=== PATIENT | female | born 1935 | race African-American/Black ===

== ENCOUNTER 2025-01-14 01:01 | Inpatient (IN) | payer OTHER, MEDICAID ==
[~2025-01-14] VITALS: Ht 162.6 cm; Wt 56.0 kg
--- NOTE | 2025-01-14 01:18 | ED.PDOC ---
SOB-HPI HPI Comments 89 year old female presents to the ED with a chief complaint of shortness of breath onset 2 weeks. Patient has been experiencing sore throat, cough, cold, congestion, shortness of breath for the past 2 weeks, noticed SOB worsened last night. She has been taking Theraflu for symptoms, with no improvement. Upon ED arrival, she was hypertensive, BP 174/102. PMHx COPD, anxiety, depression. Denies fever, chills, chest pain, nausea, vomiting, diarrhea, headache, blurry vision, dizziness. No other symptoms or modifying factors present at this time. Chief Complaint: Shortness of Breath Time Seen by MD: :10 Reviewed notes: Medications, Allergies Information Source: Patient Mode of Arrival: Ambulatory Severity: Moderate Timing: Weeks Duration: Since onset Context: At Rest PE Risk Factors: None History of: COPD, Anxiety Prehospital treatment: Other (theraflu) Modifying Factors: Nothing Associated Signs and Symptoms: Cough, Nasal Congestion, Sore Throat Past Medical History PAST MEDICAL HISTORY: Anxiety, COPD, Depression Surgical History: Denies all surgeries ADMISSIONS GATE ATTENDANT History: No Pertinent ADMISSIONS GATE ATTENDANT History Family History Family History: Reviewed,noncontributory to illness, No family hx of Cancer, No family hx of DM, No family hx of Heart yaniv, No family hx of HTN, No family hx ofKidney yaniv, No family hx of Liver yaniv, No family hx of Lung yaniv, No family hx of Stroke Social History Smoker: Quit Greater Than 1 Year Alcohol: Denies ETOH Use Drugs: Denies Drug Use Lives In: Home Constitutional: denies: chills, diaphoresis, fatigue, fever, malaise, sweats, weakness, others EENTM: reports: nose congestion, throat pain; denies: blurred vision, double vision, ear bleeding, ear discharge, ear drainage, ear pain, ear ringing, eye pain, eye redness, hearing loss, mouth pain, mouth swelling, nasal discharge, nose bleeding, nose pain, photophobia, tearing, throat swelling, voice changes, others Respiratory: reports: cough, shortness of breath; denies: hemoptysis, orthopnea, SOB at rest, SOB with excertion, stridor, wheezing, others Cardiovascular: denies: chest pain, dizzy spells, diaphoresis, Dyspnea on exertion, edema, irregular heart beat, left arm pain, lightheadedness, palpitations, PND, syncope, others Gastrointestinal: denies: abdomen distended, abdominal pain, blood streaked bowels, constipated, diarrhea, dysphagia, difficulty swallowing, hematemesis, melena, nausea, poor appetite, poor fluid intake, rectal bleeding, rectal pain, vomiting, others Genitourinary: denies: abnormal vagina bleeding, burning, dyspareunia, dysuria, flank pain, frequency, hematuria, incontinence, pain, , vagina discharge, urgency, others Neurological: denies: dizziness, fainting, headache, left sided numbness, left sided weakness, numbness, paresthesia, pre-existing deficit, right sided numbness, right sided weakness, seizure, speech problems, tingling, tremors, weakness, others Musculoskeletal: denies: back pain, gout, joint pain, joint swelling, muscle pain, muscle stiffness, neck pain, others Integumetry: denies: bruises, change in color, change in hair/nails, dryness, laceration, lesions, lumps, rash, wounds, others Allergic/Immunocompromised: denies: Difficulty Healing, Frequent Infections, Hives, Itching, others Hematologic/Lymphatic: denies: anemia, blood clots, easy bleeding, easy bruising, swollen glands, others Endocrine: denies: excessive hunger, excessive sweating, excessive thirst, excessive urination, flushing, intolerance to cold, intolerance to heat, unexplained weight gain, unexplained weight loss, others Psychiatric: denies: anxiety, bipolar disorder, depression, hopeless, panic disorder, schizophrenia, sleepless, suicidal, others All Other Systems: Reviewed and Negative Physical Exam General Appearance: Normal HEENT: Normal ENT Inspection, Pharynx Normal, TMs Normal Neck: Full Range of Motion, Non-Tender, Normal, Normal Inspection Respiratory: Chest Non-Tender, Lungs Clear, No Accessory Muscle Use, No Respiratory Distress, Normal Breath Sounds Cardiovascular: No Edema, No JVD, No Murmur, No Gallop, Normal Peripheral Pulses, Regular Rate/Rhythm Breast Exam: Deferred Gastrointestinal: No Organomegaly, Non Tender, No Pulsatile Mass, Normal Bowel Sounds, Soft Genitalia: Deferred Pelvic: Deferred Rectal: Deferred Extremities: No calf tenderness, Normal capillary refill, Normal inspection, Normal range of motion, Non-tender, No pedal edema Musculoskeletal : Apperance: Normal Neurologic: Alert, coordinator mining products II-XII nml as Tested, No Motor Deficits, Normal Affect, Normal Mood, No Sensory Deficits Cerebellar Function: Normal Reflexes: Normal Skin: Dry, Normal Color, Warm Lymphatic: No Adenopathy Was a procedure done? Was a procedure done?: No Differential Dx Differential Diagnosis: Asthma, CHF, COPD, Dysrhythmia, Hypertension, Pulmonary Embolism, URI, Other X-Ray, Labs, Meds, VS Vital Signs Date Time Temp Pulse Resp B/P (MAP) Pulse Ox O2 Delivery O2 Flow Rate FiO2 01/14/25 03:34 97.4 65 16 191/97 (128) 95 97.4 01/14/25 01:50 20 98 Room Air* 0 21 01/14/25 01:04 97.4 64 22 174/102 96 97.4 Lab Test 01/14/25 02:37 01/14/25 01:40 01/14/25 01:25 Range/Units Troponin I High Sensitivity 4 4 </=34 ng/L Blood Gas Specimen Type Venous Blood Gas Sample Site Vbg - n/a Blood Gas Patient Temperature 37.0 Arterial Blood Date Drawn [id number] Uriah Test N/a Venous Blood pH 7.394 7.320-7.430 Venous Blood pCO2 at Patient Temp 46.7 38.0-54.0 mmHg Venous Blood pO2 at Patient Temp < 36.5 23.0-48.0 mmHg Venous Blood HCO3 27.9 22.0-29.0 mmol/L Venous Blood Base Excess 2.3 -2.0-3.0 mmol/L Blood Gas Modality Room air FiO2 % 21.0 White Blood Count 5.7 4.4-10.8 10^3/uL Red Blood Count 4.05 4.0-5.20 10^6/uL Hemoglobin 12.5 12.2-16.2 g/dL Hematocrit 36.4 36.0-46.0 % Mean Corpuscular Volume 90.0 80.0-100.0 fL Mean Corpuscular Hemoglobin 30.9 28.0-32.0 pg Mean Corpuscular Hemoglobin Concent 34.4 32.0-36.0 g/dL Red Cell Distribution Width 13.4 11.8-14.3 % Platelet Count 158 140-450 10^3/uL Mean Platelet Volume 9.9 6.9-10.8 fL Neutrophils (%) (Auto) 45.4 37.0-80.0 % Lymphocytes (%) (Auto) 36.3 10.0-50.0 % Monocytes (%) (Auto) 15.0 H 0.0-12.0 % Eosinophils (%) (Auto) 3.0 0.0-7.0 % Basophils (%) (Auto) 0.3 0.0-2.0 % Neutrophils # (Auto) 2.6 1.6-8.6 10 ^3/uL Lymphocytes # (Auto) 2.0 0.4-5.4 10 ^3/uL Monocytes # (Auto) 0.8 0-1.3 10 ^3/uL Eosinophils # (Auto) 0.2 0-0.8 10 ^3/uL Basophils # (Auto) 0 0-0.2 10 ^3/uL Nucleated Red Blood Cells 0.0 % Sodium Level 141 136-145 mmol/L Potassium Level 3.4 L 3.5-5.1 mmol/L Chloride Level 107 98-107 mmol/L Carbon Dioxide Level 25 20-31 mmol/L Anion Gap 9 5-15 Blood Urea Nitrogen 10 9-23 mg/dL Creatinine 0.90 0.550-1.02 mg/dL Glomerular Filtration Rate Calc 62 >90 mL/min BUN/Creatinine Ratio 11.1 10.0-20.0 Serum Glucose 89 74-106 mg/dL Calcium Level 9.7 8.7-10.4 mg/dL Magnesium Level 2.2 1.6-2.6 mg/dL Total Bilirubin 1.2 H 0.2-1.0 mg/dL Aspartate Amino Transferase (AST) 23 13-40 U/L Alanine Aminotransferase (ALT) 16 7-40 U/L Alkaline Phosphatase 86 46-116 U/L B-Type Natriuretic Peptide 59.96 0-100 pg/mL Total Protein 7.5 5.7-8.2 g/dL Albumin 4.2 3.2-4.8 g/dL Current Medications Medications (Trade) Dose Ordered Sig/Oksana Route Start Time Stop Time Status Last Admin Albuterol (Ventolin Medneb) 5 mg ONCE ONCE NEB 01/14/25 01:15 01/14/25 01:18 DC 01/14/25 01:49 Prednisone 40 mg ONCE ONCE PO 01/14/25 01:15 01/14/25 01:18 DC 01/14/25 03:23 Ipratropium [place] (Atrovent Medneb) 0.5 mg ONCE ONCE NEB 01/14/25 01:15 01/14/25 01:18 DC 01/14/25 01:47 Time of 1ST Reevaluation: 01:40 Reevaluation 1ST: Unchanged Patient Education/Counseling: Diagnosis, Treatment, Prognosis Family Education/Counseling: No Family Present Additional Information The following tests were ordered, and results were reviewed by me: TROP-x3, CBC, CMP, BNP, XY CHEST, MAG, VBG I reviewed and agreed with the following test results read by other providers: XY CHEST I discussed treatment and results with medical personnel and: patient Comprehensive systems review obtained and negative except for what is stated in the HPI. SEPSIS Sepsis Screen Date sepsis recognized/suspect: Jan 14, 2025 Time Sepsis recognized/suspect: 107 Recent Procedure: No On Antibiotic Therapy: No Respiratory Rate >20: No Heart Rate >90: No Temp<36 C (96.8 F) or >38.3 C: No SBP <90 or MAP <65 mmHG: No New Acute Mental Status Change: No Is the patient on CPAP, BIPAP,: No Physician Orders Chest Portable (01/14/25 01:15) Chief Relay Tester (01/14/25 01:15) Troponin-I Hs (01/14/25 04:15) Electrocardigram (01/14/25 01:15) Venous Blood Gas (01/14/25 01:15) Hydralazine Hcl Tablet (Apresoline Table (01/14/25 04:00) Vital Signs Date Time Temp Pulse Resp B/P (MAP) Pulse Ox O2 Delivery O2 Flow Rate FiO2 01/14/25 03:34 97.4 65 16 191/97 (128) 95 97.4 01/14/25 01:50 20 98 Room Air* 0 21 01/14/25 01:04 97.4 64 22 174/102 96 97.4 Laboratory Tests Test 01/14/25 01:25 White Blood Count 5.7 10^3/uL (4.4-10.8) Medications Medications Dose Ordered Sig/Oksana Route Start Time Stop Time Status Last Admin Dose Admin Albuterol 5 mg ONCE ONCE NEB 01/14/25 01:15 01/14/25 01:18 DC 01/14/25 01:49 Ipratropium [place] 0.5 mg ONCE ONCE NEB 01/14/25 01:15 01/14/25 01:18 DC 01/14/25 01:47 Prednisone 40 mg ONCE ONCE PO 01/14/25 01:15 01/14/25 01:18 DC 01/14/25 03:23 Departure 1 Departure Time of Disposition: 03:53 Impression: Primary Impression: Hypertensive urgency Additional Impression: COPD exacerbation Disposition: ADMITTED INPATIENT Admit to: Tele Condition: Guarded Comments 89-year-old female with shortness of breath and some tightness in her chest. Blood pressure quite elevated. Initial troponin normal. I suspect COPD exacerbation. I suspect intermediate coronary syndrome. Patient was given aspirin and hydralazine for blood pressure control. Patient will need to be admitted in the hospital for further workup and supportive care Critical Care Note Critical Care Time?: No Stability Stability form required: No Heart Score Heart Score: Heart Score Response (Comments) Value History Moderate Suspicious 1 EKG Repolarization Disturb 1 Age >65 2 Risk Factors 1 or 2 risk factors 1 Troponin Normal limit 0 Total 5 I personally scribed for LEONIDES HEMPHILL MD ([email or web address]) on 01/14/25 at 01:18. Electronically submitted by Ghazala Alas ([email or web address]). I personally scribed for LEONIDES HEMPHILL MD ([email or web address]) on 01/14/25 at 01:19. Electronically submitted by Ghazala Alas ([email or web address]). LEONIDES HEMPHILL MD Jan 14, 2025 01:18
[2025-01-14 01:46] LABS: Hematocrit 36.4 % (36.0-46.0); Hemoglobin 12.5 g/dL (12.2-16.2); Mean Corpuscular Hemoglobin 30.9 pg (28.0-32.0); Mean Corpuscular Volume 90.0 fL (80.0-100.0); Nucleated Red Blood Cells % 0.0 %
[2025-01-14] MEDS: IPRATROPIUM BROM 0.5 MG/2.5ML INH SOL NEB ONE (01:47)
[2025-01-14] MEDS: ALBUTEROL SULF 2.5 MG/0.5ML(0.5%) NEB SOLN NEB ONE (01:49)
[2025-01-14 02:01] LABS: Alanine Aminotransferase 16 U/L (7-40); Albumin 4.2 g/dL (3.2-4.8); Alkaline Phosphatase 86 U/L (46-116); Anion Gap 9 (5-15); BUN/Creatinine Ratio 11.1 (10.0-20.0); Blood Urea Nitrogen 10 mg/dL (9-23); Calcium 9.7 mg/dL (8.7-10.4); Carbon Dioxide 25 mmol/L (20-31); Chloride 107 mmol/L (98-107); Glucose 89 mg/dL (74-106); Magnesium 2.2 mg/dL (1.6-2.6); Sodium 141 mmol/L (136-145); Total Protein 7.5 g/dL (5.7-8.2)
[2025-01-14 02:02] LABS: Bilirubin, Total 1.2 mg/dL (0.2-1.0)
[2025-01-14 02:13] LABS: Potassium 3.4 mmol/L (3.5-5.1)
--- NOTE | 2025-01-14 03:13 | DVH ---
INDICATION: SOB TECHNIQUE: Frontal view of the chest. COMPARISON: None FINDINGS: . The heart and mediastinal contours are grossly unremarkable. There is no evidence of pleural disea se. The lungs are clear. The bony structures of the chest are intact without fracture. IMPRESSION: 1. No evidence of acute disease.
[2025-01-14] MEDS: predniSONE 20 MG TAB PO ONE (03:23)
[2025-01-14 03:34] VITALS: PULSE 65; RESP 16; TEMP 97.4; O2SAT 95
[2025-01-14 03:52] VITALS: BP 176/114
[2025-01-14] MEDS ORDERED: NITROGLYCERIN 0.4 MG SL TAB SL PRN (04:45)
[2025-01-14] MEDS ORDERED: ALBUTEROL SULF 2.5 MG/0.5ML(0.5%) NEB SOLN NEB PRN (04:45)
[2025-01-14] MEDS ORDERED: ACETAMINOPHEN 325 MG TAB PO PRN (04:45)
[2025-01-14] MEDS ORDERED: IPRATROPIUM BROM 0.5 MG/2.5ML INH SOL NEB PRN (04:45)
[2025-01-14] MEDS ORDERED: ONDANSETRON HCL 4 MG/2 ML VIAL IV PRN (04:45)
[2025-01-14] MEDS ORDERED: MORPHINE SULFATE INJ 2 MG/ml SYRG IV PRN (04:45)
--- NOTE | 2025-01-14 05:00 | DVHHP2 ---
History of Present Illness Reason for Visit: Shortness for breath History of Present Illness 59-year-old female presents for evaluation of shortness for breath. Patient reports a one-week history of shortness for breath that worsened yesterday. States having a nonproductive cough. No fever or chills. No other acute complaints Past Medical History COPD, depression Past Surgical History Denies Family History Noncontributory Smoke: Quit ALCOHOL: none Drugs: None Lives: with Family Review of Systems Review of Systems Review of systems are currently negative otherwise addressed in HPI. Allergies: Coded Allergies: NO KNOWN ALLERGIES (Unverified , 01/14/25) Medications Current Medications Medications Dose Ordered Sig/Oksana Route Start Time Stop Time Status Last Admin Dose Admin Amlodipine Besylate 5 mg DAILY PO 01/14/25 10:00 Clonidine HCl 0.1 mg Q6HP PRN PO 01/14/25 04:45 Albuterol 2.5 mg Q6HPRN PRN NEB 01/14/25 04:45 Ipratropium [place] 0.5 mg Q6HPRN PRN NEB 01/14/25 04:45 Methylprednisolone Sodium Succinate 40 mg BID IV 01/14/25 10:00 Ondansetron HCl 4 mg Q4HP PRN IV 01/14/25 04:45 UNV Enoxaparin Sodium 40 mg DAILY SC 01/14/25 10:00 UNV Acetaminophen 650 mg Q6HP PRN PO 01/14/25 04:45 UNV Nitroglycerin 0.4 mg Q5MINP PRN SL 01/14/25 04:45 UNV Morphine Sulfate 2 mg Q30M PRN IV 01/14/25 04:45 UNV Exam Vital Signs Vital Signs Date Time Temp Pulse Resp B/P (MAP) Pulse Ox O2 Delivery O2 Flow Rate FiO2 01/14/25 04:18 176/114 01/14/25 03:34 97.4 65 16 95 97.4 01/14/25 01:50 Room Air* 0 21 Exam Gen: 89-year-old female in mild distress Skin: Warm, dry, normal color and texture, no rash. HEENT: Normocephalic atraumatic, mucous membranes moist and pink. Neck: Cervical and supraclavicular nodes normal without enlargement, trachea is midline, thyroid gland is normal without masses. Pulmonary: Diminished breath sounds bilaterally Cardiac: Regular rate and rhythm. No murmur Abdomen: Soft, nontender, nondistended, bowel sounds present all 4 quadrants, no guarding, no rigidity, no organomegaly. Extremities: No cyanosis, clubbing, no edema Neuro: Cranial nerves II through XII grossly intact, normal affect and speech, no focal motor deficits. Labs/Xrays ORDERING PHYSICIAN: LEONIDES HEMPHILL MD PROCEDURE(s): CXRP - CHEST PORTABLE REASON: SOB ORDER NUMBER(s): [id number], ACCESSION NUMBER(s): [id number] INDICATION: SOB TECHNIQUE: Frontal view of the chest. COMPARISON: None FINDINGS: . The heart and mediastinal contours are grossly unremarkable. There is no evidence of pleural disease. The lungs are clear. The bony structures of the chest are intact without fracture. IMPRESSION: 1. No evidence of acute disease. Labs Test 01/14/25 02:37 01/14/25 01:40 01/14/25 01:25 Range/Units Troponin I High Sensitivity 4 </=34 ng/L Blood Gas Specimen Type Venous Blood Gas Sample Site Vbg - n/a Blood Gas Patient Temperature 37.0 Arterial Blood Date Drawn Uriah Test N/a Venous Blood pH 7.394 7.320-7.430 Venous Blood pCO2 at Patient Temp 46.7 38.0-54.0 mmHg Venous Blood pO2 at Patient Temp < 36.5 23.0-48.0 mmHg Venous Blood HCO3 27.9 22.0-29.0 mmol/L Venous Blood Base Excess 2.3 -2.0-3.0 mmol/L Blood Gas Modality Room air FiO2 % 21.0 White Blood Count 5.7 4.4-10.8 10^3/uL Red Blood Count 4.05 4.0-5.20 10^6/uL Hemoglobin 12.5 12.2-16.2 g/dL Hematocrit 36.4 36.0-46.0 % Mean Corpuscular Volume 90.0 80.0-100.0 fL Mean Corpuscular Hemoglobin 30.9 28.0-32.0 pg Mean Corpuscular Hemoglobin Concent 34.4 32.0-36.0 g/dL Red Cell Distribution Width 13.4 11.8-14.3 % Platelet Count 158 140-450 10^3/uL Mean Platelet Volume 9.9 6.9-10.8 fL Neutrophils (%) (Auto) 45.4 37.0-80.0 % Lymphocytes (%) (Auto) 36.3 10.0-50.0 % Monocytes (%) (Auto) 15.0 H 0.0-12.0 % Eosinophils (%) (Auto) 3.0 0.0-7.0 % Basophils (%) (Auto) 0.3 0.0-2.0 % Neutrophils # (Auto) 2.6 1.6-8.6 10 ^3/uL Lymphocytes # (Auto) 2.0 0.4-5.4 10 ^3/uL Monocytes # (Auto) 0.8 0-1.3 10 ^3/uL Eosinophils # (Auto) 0.2 0-0.8 10 ^3/uL Basophils # (Auto) 0 0-0.2 10 ^3/uL Nucleated Red Blood Cells 0.0 % Sodium Level 141 136-145 mmol/L Potassium Level 3.4 L 3.5-5.1 mmol/L Chloride Level 107 98-107 mmol/L Carbon Dioxide Level 25 20-31 mmol/L Anion Gap 9 5-15 Blood Urea Nitrogen 10 9-23 mg/dL Creatinine 0.90 0.550-1.02 mg/dL Glomerular Filtration Rate Calc 62 >90 mL/min BUN/Creatinine Ratio 11.1 10.0-20.0 Serum Glucose 89 74-106 mg/dL Calcium Level 9.7 8.7-10.4 mg/dL Magnesium Level 2.2 1.6-2.6 mg/dL Total Bilirubin 1.2 H 0.2-1.0 mg/dL Aspartate Amino Transferase (AST) 23 13-40 U/L Alanine Aminotransferase (ALT) 16 7-40 U/L Alkaline Phosphatase 86 46-116 U/L B-Type Natriuretic Peptide 59.96 0-100 pg/mL Total Protein 7.5 5.7-8.2 g/dL Albumin 4.2 3.2-4.8 g/dL SEPSIS Sepsis Screen Date sepsis recognized/suspect: Jan 14, 2025 Time Sepsis recognized/suspect: 0108 Recent Procedure: No On Antibiotic Therapy: No Respiratory Rate >20: No Heart Rate >90: No Temp<36 C (96.8 F) or >38.3 C: No SBP <90 or MAP <65 mmHG: No New Acute Mental Status Change: No Is the patient on CPAP, BIPAP,: No Physician Orders Chest Portable (01/14/25 01:15) Cement Gun Operator (01/14/25 01:15) Electrocardigram (01/14/25 01:15) Venous Blood Gas (01/14/25 01:15) Amlodipine Tablet (Norvasc Tablet) (01/14/25 10:00) Clonidine Hcl Tablet (Catapres Tablet) (01/14/25 04:45) Albuterol Medneb (Ventolin Medneb) (01/14/25 04:45) Ipratropium Medneb (Atrovent Medneb) (01/14/25 04:45) Methylprednisolone Sod Succ (Solu Medrol (01/14/25 10:00) Urinalysis (01/14/25 04:40) Basic Metabolic Panel (01/15/25 04:00) Admit (01/14/25 04:40) Ondansetron Hcl (Zofran) (01/14/25 04:45) Enoxaparin Sodium (Lovenox) (01/14/25 10:00) Cardiac Diet-2gna,Lofat,Lochol (01/14/25 Breakfast) Condition: Fair (01/14/25 04:40) Acetaminophen Tablet (Tylenol Tablet) (01/14/25 04:45) Bedrest With Bathroom Privileg (01/14/25 04:40) Nitroglycerin Sublingual (Ntrostat Subli (01/14/25 04:45) Morphine Sulfate Injection (01/14/25 04:45) Stat Ekg For Chest Pain (01/14/25 04:40) Notify Md Of Changes From Base (01/14/25 04:40) Renal Dietitian For 24 Hours (01/14/25 04:40) Emergency Dysrhythmia Protocol (01/14/25 04:40) Rhythm Strips Once Every Shift (01/14/25 04:40) Oxygen By Nasal Cannula (01/14/25 04:40) Vital Signs Date Time Temp Pulse Resp B/P (MAP) Pulse Ox O2 Delivery O2 Flow Rate FiO2 01/14/25 04:18 176/114 01/14/25 03:52 176/114 (134) 01/14/25 03:34 97.4 65 16 191/97 (128) 95 97.4 01/14/25 01:50 20 98 Room Air* 0 21 01/14/25 01:04 97.4 64 22 174/102 96 97.4 Laboratory Tests Test 01/14/25 01:25 White Blood Count 5.7 10^3/uL (4.4-10.8) Medications Medications Dose Ordered Sig/Oksana Route Start Time Stop Time Status Last Admin Dose Admin Albuterol 5 mg ONCE ONCE NEB 01/14/25 01:15 01/14/25 01:18 DC 01/14/25 01:49 5 MG Aspirin 162 mg ONCE ONCE PO 01/14/25 04:00 01/14/25 04:01 DC 01/14/25 04:18 162 MG Hydralazine HCl 25 mg ONCE ONCE PO 01/14/25 04:00 01/14/25 04:01 DC 01/14/25 04:18 25 MG Ipratropium [place] 0.5 mg ONCE ONCE NEB 01/14/25 01:15 01/14/25 01:18 DC 01/14/25 01:47 0.5 MG Prednisone 40 mg ONCE ONCE PO 01/14/25 01:15 01/14/25 01:18 DC 01/14/25 03:23 40 MG Assessment/Plan Assessment/Plan Assessment Acute on chronic respiratory failure COPD exacerbation Accelerated hypertension Plan Admit the patient to telemetry to the hospitalist Med nebs As needed antihypertensives Continue treatment per orders. Plan discussed with: Patient My Orders Orders - KORTNEY STERLING AGACNP Procedure Category Date Status Time Amlodipine Tablet PHA 01/14/25 In Process (Norvasc Tablet) 10:00 Clonidine Hcl Tablet PHA 01/14/25 In Process (Catapres Tablet) 04:45 Albuterol Medneb PHA 01/14/25 In Process (Ventolin Medneb) 04:45 Ipratropium Medneb PHA 01/14/25 In Process (Atrovent Medneb) 04:45 Methylprednisolone PHA 01/14/25 In Process Sod Succ (Solu Medrol 10:00 Urinalysis LAB 01/14/25 Logged 04:40 Basic Metabolic Panel LAB 01/15/25 Verified 04:00 Admit ADMIT 01/14/25 Transmitted 04:40 Ondansetron Hcl PHA 01/14/25 In Process (Zofran) 04:45 Enoxaparin Sodium [facility] 01/14/25 Logged (Lovenox) 10:00 Cardiac DIET 01/14/25 Transmitted Diet-2gna,Lofat,Lochol Breakfast Condition: Fair [facility] 01/14/25 In Process 04:40 Acetaminophen Tablet [facility] 01/14/25 Logged (Tylenol Tablet) 04:45 Bedrest With Bathroom [facility] 01/14/25 In Process Privileg 04:40 Nitroglycerin [facility] 01/14/25 Logged Sublingual (Ntrostat 04:45 Morphine Sulfate [facility] 01/14/25 Logged Injection 04:45 Stat Ekg For Chest [facility] 01/14/25 In Process Pain 04:40 Notify Md Of Changes [facility] 01/14/25 In Process From Base 04:40 Renal Dietitian For [facility] 01/14/25 In Process 24 Hours 04:40 Emergency Dysrhythmia [facility] 01/14/25 In Process Protocol 04:40 Rhythm Strips Once [facility] 01/14/25 In Process Every Shift 04:40 Oxygen By Nasal RT 01/14/25 Transmitted Cannula 04:40 Date of Service: Jan 14, 2025 Billing Provider: KORTNEY STERLING Common Visit Codes: [id number] INP/OBS CARE (HIGH) KORTNEY STERLING Jan 14, 2025 05:00
[2025-01-14] MEDS ORDERED: methylPREDNISolone SOD SUCC 40 MG/ML VL IV SCH (10:00)
[2025-01-14] MEDS ORDERED: ENOXAPARIN SOD 40 MG/0.4 ML SYRINGE SC SCH (10:00)
== END 2025-01-14 05:00 | disposition left against medical advice (07) | DRG 189 ==
LOC: ER 01:10 → OVERFLOW 04:40
PROVIDERS: ADMIT Nurse Practitioner; ATTEND Nurse Practitioner
DX: J96.20 Acute and chronic respiratory failure, unspecified whether with hypoxia or hypercapnia (principal); J44.1 Chronic obstructive pulmonary disease with (acute) exacerbation; I16.0 Hypertensive urgency; I10 Essential (primary) hypertension; F41.9 Anxiety disorder, unspecified; Z53.29 Procedure and treatment not carried out because of patient's decision for other reasons; Z87.891 Personal history of nicotine dependence
CPT/HCPCS: 36415; 36600; 71045; 80053; 82805; 83735; 83880; 84484; 85025; 94640; G0378

== ENCOUNTER 2025-01-22 17:37 | Emergency (ER) | payer OTHER, MEDICAID ==
[~2025-01-22] VITALS: Ht 162.6 cm; Wt 56.4 kg
--- NOTE | 2025-01-22 19:30 | ED.PDOC ---
History of Present Illness HPI Comments 89-year-old female who came to ER for head injury. Patient states she bumped her head 2 weeks ago, and since then she has been having left frontal headaches, associated with left-sided body pain. Denies any chest pains or shortness a breath Chief Complaint: Head Injury Time Seen by MD: 19:29 Reviewed Notes: Nurses Notes Allergies: Coded Allergies: NO KNOWN ALLERGIES (Unverified , 01/14/25) Information Source: Patient Mode of Arrival: Ambulatory Severity: Moderate Timing: Days Duration: Intermittent Past Medical History PAST MEDICAL HISTORY: Anxiety, COPD, Depression, HTN Surgical History: Denies all surgeries HAT SIZER History: No Pertinent HAT SIZER History Family History Family History: Reviewed,noncontributory to illness Social History Smoker: Quit Greater Than 1 Year Alcohol: Denies ETOH Use Drugs: Denies Drug Use Lives In: Home Constitutional: denies: chills, diaphoresis, fatigue, fever, malaise, sweats, weakness, others EENTM: denies: blurred vision, double vision, ear bleeding, ear discharge, ear drainage, ear pain, ear ringing, eye pain, eye redness, hearing loss, mouth pain, mouth swelling, nasal discharge, nose bleeding, nose congestion, nose pain, photophobia, tearing, throat pain, throat swelling, voice changes, others Respiratory: denies: cough, hemoptysis, orthopnea, SOB at rest, shortness of breath, SOB with excertion, stridor, wheezing, others Cardiovascular: denies: chest pain, dizzy spells, diaphoresis, Dyspnea on exertion, edema, irregular heart beat, left arm pain, lightheadedness, palpitations, PND, syncope, others Gastrointestinal: denies: abdomen distended, abdominal pain, blood streaked bowels, constipated, diarrhea, dysphagia, difficulty swallowing, hematemesis, melena, nausea, poor appetite, poor fluid intake, rectal bleeding, rectal pain, vomiting, others Genitourinary: denies: abnormal vagina bleeding, burning, dyspareunia, dysuria, flank pain, frequency, hematuria, incontinence, pain, , vagina discharge, urgency, others Neurological: reports: headache; denies: dizziness, fainting, left sided numbness, left sided weakness, numbness, paresthesia, pre-existing deficit, right sided numbness, right sided weakness, seizure, speech problems, tingling, tremors, weakness, others Musculoskeletal: reports: others (Left-sided body pain); denies: back pain, gout, joint pain, joint swelling, muscle pain, muscle stiffness, neck pain Integumetry: denies: bruises, change in color, change in hair/nails, dryness, laceration, lesions, lumps, rash, wounds, others Allergic/Immunocompromised: denies: Difficulty Healing, Frequent Infections, Hives, Itching, others Hematologic/Lymphatic: denies: anemia, blood clots, easy bleeding, easy bruising, swollen glands, others Endocrine: denies: excessive hunger, excessive sweating, excessive thirst, excessive urination, flushing, intolerance to cold, intolerance to heat, unexplained weight gain, unexplained weight loss, others Psychiatric: denies: anxiety, bipolar disorder, depression, hopeless, panic disorder, schizophrenia, sleepless, suicidal, others Physical Exam General Appearance: No Apparent Distress, Normal HEENT: Normal ENT Inspection, Pharynx Normal, TMs Normal Neck: Full Range of Motion, Non-Tender, Normal, Normal Inspection Respiratory: Chest Non-Tender, Lungs Clear, No Accessory Muscle Use, No Respiratory Distress, Normal Breath Sounds Cardiovascular: No Edema, No JVD, No Murmur, No Gallop, Normal Peripheral Pulses, Regular Rate/Rhythm Breast Exam: Deferred Gastrointestinal: No Organomegaly, Non Tender, No Pulsatile Mass, Normal Bowel Sounds, Soft Genitalia: Deferred Pelvic: Deferred Rectal: Deferred Extremities: No calf tenderness, Normal capillary refill, Normal inspection, Normal range of motion, Non-tender, No pedal edema Musculoskeletal : Apperance: Normal Neurologic: Alert, rail flaw detector operator II-XII nml as Tested, No Motor Deficits, Normal Affect, Normal Mood, No Sensory Deficits Cerebellar Function: Normal Reflexes: Normal Skin: Dry, Normal Color, Warm Lymphatic: No Adenopathy Was a procedure done? Was a procedure done?: No Differential Dx Considerations may include: Head injury, concussion, CVA X-Ray, Labs, Meds, VS Vital Signs Date Time Temp Pulse Resp B/P (MAP) Pulse Ox O2 Delivery O2 Flow Rate FiO2 01/22/25 19:41 98.3 59 18 126/87 (100) 97 98.3 01/22/25 17:39 98.3 72 6 134/86 96 98.3 Time of 1ST Reevaluation: 19:26 Reevaluation 1ST: Unchanged Patient Education/Counseling: Diagnosis, Treatment Family Education/Counseling: No Family Present SEPSIS Sepsis Screen Date sepsis recognized/suspect: Jan 22, 2025 Time Sepsis recognized/suspect: 1738 Recent Procedure: No On Antibiotic Therapy: No Respiratory Rate >20: No Heart Rate >90: No Temp<36 C (96.8 F) or >38.3 C: No SBP <90 or MAP <65 mmHG: No New Acute Mental Status Change: No Is the patient on CPAP, BIPAP,: No Physician Orders Head Without Contrast (01/22/25 19:19) Vital Signs Date Time Temp Pulse Resp B/P (MAP) Pulse Ox O2 Delivery O2 Flow Rate FiO2 01/22/25 19:41 98.3 59 18 126/87 (100) 97 98.3 01/22/25 17:39 98.3 72 6 134/86 96 98.3 Departure 1 Departure Time of Disposition: 20:20 Impression: Primary Impression: Forehead contusion Additional Impression: Head injury Disposition: HOME / SELF CARE / HOMELESS Condition: Stable Discharged With: Self Critical Care Note Critical Care Time?: No Stability Stability form required: No Heart Score Heart Score: Heart Score Response (Comments) Value History N/A 0 EKG N/A 0 Age N/A 0 Risk Factors N/A 0 Troponin N/A 0 Total 0 I personally scribed for LEONIDES HEMPHILL MD ([email or web address]) on 01/22/25 at 19:30. Electronically submitted by Jonas Traore ([email or web address]). LEONIDES HEMPHILL MD Jan 22, 2025 19:30
--- NOTE | 2025-01-22 19:58 | DVH ---
EXAM: CT HEAD WITHOUT CONTRAST INDICATION: headache / head injury TECHNIQUE: CT images of the head were obtained without administration of IV contrast. CT scans at [facility] facility use dose modulation, iterative reconstruction, and/or weight based dosing when appropriate to reduce radiation dose to as low as reasonably achievable. COMPARISON: None FINDINGS: PARENCHYMA: No acute hemorrhage. There is no mass effect, midline shift, or herniation. There is pres ervation of the gay white differentiation. Mild scattered hypoattenuation along the periventricular, centrum semiovale, and deep white matter tracts, which are nonspecific however statistically most li terri represent chronic microvascular ischemic change. Slight prominent cerebellar folia correlate for volume loss. VENTRICLES: No hydrocephalus. EXTRA-AXIAL SPACES: No extra-axial fluid collections. Possible calcified meningioma of the right ante rior frontal convexity measuring 6 mm OTHER: The bony structures are intact. Visualized portions of the paranasal sinuses and mastoid air cells are clear. Vascular calcifications. IMPRESSION: 1. No CT evidence of an acute intracranial abnormality.
[2025-01-22 20:49] VITALS: TEMP 98.5
[2025-01-22] MEDS ORDERED: AMLO1TAB22 PO (21:05)
[2025-01-22 21:41] VITALS: PULSE 58; RESP 16; O2SAT 99
[2025-01-22 21:42] VITALS: BP 159/93
== END 2025-01-22 21:48 | disposition home or self-care (01) ==
LOC: ER 17:37
DX: S00.83XA Contusion of other part of head, initial encounter (principal); S09.8XXA Other specified injuries of head, initial encounter; F41.9 Anxiety disorder, unspecified; J44.9 Chronic obstructive pulmonary disease, unspecified; I10 Essential (primary) hypertension; F32.A Depression, unspecified; Z87.891 Personal history of nicotine dependence; X58.XXXA Exposure to other specified factors, initial encounter; Y93.89 Activity, other specified; Y92.89 Other specified places as the place of occurrence of the external cause; Y99.8 Other external cause status
CPT/HCPCS: 70450

== ENCOUNTER 2025-02-23 02:23 | Emergency (ER) | payer OTHER, MEDICAID ==
[~2025-02-23] VITALS: Ht 152.4 cm; Wt 57.2 kg
[~2025-02-23 02:23] MED LIST: AMLO1TAB22 PO
--- NOTE | 2025-02-23 02:57 | ED.PDOC ---
History of Present Illness HPI Comments 89 y/o F presents with c/c of dyspnea. Patient endorses onset of symptoms, this morning, and coming to the ED after failing to locate her at-home breathing treatments. Denial of any chest pain, cough, congestion, fever, chills, or further associated symptoms. Chief Complaint: Shortness of Breath Time Seen by MD: 02:50 Reviewed Notes: Nurses Notes, Medications, Allergies Allergies: Coded Allergies: NO KNOWN ALLERGIES (Unverified , 01/14/25) Home Meds Active Scripts Prednisone (Prednisone) 20 Mg Tab, 20 MG PO BID for 5 Days, #10 TAB Prov:LEONIDES HEMPHILL MD 02/23/25 Azithromycin (Azithromycin) 500 Mg Tab, 1 TAB PO DAILY for 5 Days, #5 TAB Prov:LEONIDES HEMPHILL MD 02/23/25 Albuterol Sulfate (Albuterol Sulfate) 0.083 % Neb, 1 VIAL NEB Q4HPRN PRN, #50 VIAL 5 Refills Prov:LEONIDES HEMPHILL MD 02/23/25 Amlodipine Besylate (Amlodipine Besylate) 5 Mg Tab, 1 TAB PO DAILY for 90 Days, #90 TAB 5 Refills Prov:LEONIDES HEMPHILL MD 01/22/25 Information Source: Patient Mode of Arrival: Ambulatory Severity: Moderate Timing: Hours Duration: Since onset Prehospital treatment: None Past Medical History PAST MEDICAL HISTORY: Anxiety, COPD, Depression, HTN Surgical History: Denies all surgeries BENZENE WASHER OPERATOR History: No Pertinent BENZENE WASHER OPERATOR History Family History Family History: Reviewed,noncontributory to illness Social History Smoker: Quit Greater Than 1 Year Alcohol: Denies ETOH Use Drugs: Denies Drug Use Lives In: Home All Other Systems: Reviewed and Negative (Comprehensive review of systems are negative unless stated in HPI) Physical Exam General Appearance: No Apparent Distress, Normal HEENT: Normal ENT Inspection, Pharynx Normal, TMs Normal Neck: Full Range of Motion, Non-Tender, Normal, Normal Inspection Respiratory: Chest Non-Tender, Decreased Breath Sounds (at bilateral lower bases ), Lungs Clear, No Accessory Muscle Use, No Respiratory Distress Cardiovascular: No Edema, No JVD, No Murmur, No Gallop, Normal Peripheral Pulses, Regular Rate/Rhythm Breast Exam: Deferred Gastrointestinal: No Organomegaly, Non Tender, No Pulsatile Mass, Normal Bowel Sounds, Soft Genitalia: Deferred Pelvic: Deferred Rectal: Deferred Extremities: No calf tenderness, Normal capillary refill, Normal inspection, Normal range of motion, Non-tender, No pedal edema Musculoskeletal : Apperance: Normal Neurologic: Alert, retail banker II-XII nml as Tested, No Motor Deficits, Normal Affect, Normal Mood, No Sensory Deficits Cerebellar Function: Normal Reflexes: Normal Skin: Dry, Normal Color, Warm Lymphatic: No Adenopathy Was a procedure done? Was a procedure done?: No Differential Dx Considerations may include: acute COPD exacerbation, URI, PNA, viral syndrome, among others X-Ray, Labs, Meds, VS Vital Signs Date Time Temp Pulse Resp B/P (MAP) Pulse Ox O2 Delivery O2 Flow Rate FiO2 02/23/25 05:13 97.9 64 18 140/80 (100) 96 97.9 02/23/25 03:09 16 97 Room Air* 0 21 02/23/25 02:24 97.7 74 16 161/105 95 97.7 Lab Test 02/23/25 02:59 Range/Units White Blood Count 5.9 4.4-10.8 10^3/uL Red Blood Count 4.14 4.0-5.20 10^6/uL Hemoglobin 12.6 12.2-16.2 g/dL Hematocrit 37.5 36.0-46.0 % Mean Corpuscular Volume 90.6 80.0-100.0 fL Mean Corpuscular Hemoglobin 30.4 28.0-32.0 pg Mean Corpuscular Hemoglobin Concent 33.6 32.0-36.0 g/dL Red Cell Distribution Width 13.7 11.8-14.3 % Platelet Count 177 140-450 10^3/uL Mean Platelet Volume 9.6 6.9-10.8 fL Neutrophils (%) (Auto) 44.1 37.0-80.0 % Lymphocytes (%) (Auto) 35.8 10.0-50.0 % Monocytes (%) (Auto) 15.7 H 0.0-12.0 % Eosinophils (%) (Auto) 3.6 0.0-7.0 % Basophils (%) (Auto) 0.8 0.0-2.0 % Neutrophils # (Auto) 2.6 1.6-8.6 10 ^3/uL Lymphocytes # (Auto) 2.1 0.4-5.4 10 ^3/uL Monocytes # (Auto) 0.9 0-1.3 10 ^3/uL Eosinophils # (Auto) 0.2 0-0.8 10 ^3/uL Basophils # (Auto) 0 0-0.2 10 ^3/uL Nucleated Red Blood Cells 0.0 % Sodium Level 143 136-145 mmol/L Potassium Level 3.7 3.5-5.1 mmol/L Chloride Level 108 H 98-107 mmol/L Carbon Dioxide Level 27 20-31 mmol/L Anion Gap 8 5-15 Blood Urea Nitrogen 13 9-23 mg/dL Creatinine 0.97 0.550-1.02 mg/dL Glomerular Filtration Rate Calc 57 >90 mL/min BUN/Creatinine Ratio 13.4 10.0-20.0 Serum Glucose 86 74-106 mg/dL Calcium Level 9.3 8.7-10.4 mg/dL Total Bilirubin 0.7 0.2-1.0 mg/dL Aspartate Amino Transferase (AST) 17 13-40 U/L Alanine Aminotransferase (ALT) 14 7-40 U/L Alkaline Phosphatase 88 46-116 U/L Troponin I High Sensitivity 4 </=34 ng/L B-Type Natriuretic Peptide 59.48 0-100 pg/mL Total Protein 6.8 5.7-8.2 g/dL Albumin 3.8 3.2-4.8 g/dL Current Medications Medications (Trade) Dose Ordered Sig/Oksana Route Start Time Stop Time Status Last Admin Albuterol (Ventolin Medneb) 5 mg ONCE ONCE NEB 02/23/25 03:00 02/23/25 03:01 DC 02/23/25 03:08 Time of 1ST Reevaluation: 03:20 Reevaluation 1ST: Unchanged Patient Education/Counseling: Treatment, Need For Follow Up Family Education/Counseling: No Family Present SEPSIS Sepsis Screen Date sepsis recognized/suspect: Feb 23, 2025 Time Sepsis recognized/suspect: 223 Recent Procedure: No On Antibiotic Therapy: No Respiratory Rate >20: No Heart Rate >90: No Temp<36 C (96.8 F) or >38.3 C: No SBP <90 or MAP <65 mmHG: No New Acute Mental Status Change: No Is the patient on CPAP, BIPAP,: No Physician Orders Electrocardigram (02/23/25 02:51) Chest Xray 1 View (02/23/25 02:51) Vital Signs Date Time Temp Pulse Resp B/P (MAP) Pulse Ox O2 Delivery O2 Flow Rate FiO2 02/23/25 05:13 97.9 64 18 140/80 (100) 96 97.9 02/23/25 03:09 16 97 Room Air* 0 21 02/23/25 02:24 97.7 74 16 161/105 95 97.7 Laboratory Tests Test 02/23/25 02:59 White Blood Count 5.9 10^3/uL (4.4-10.8) Medications Medications Dose Ordered Sig/Oksana Route Start Time Stop Time Status Last Admin Dose Admin Albuterol 5 mg ONCE ONCE NEB 02/23/25 03:00 02/23/25 03:01 DC 02/23/25 03:08 Departure 1 Departure Time of Disposition: 05:00 Impression: Primary Impression: COPD exacerbation Disposition: HOME / SELF CARE / HOMELESS Condition: Stable e-Prescriptions Prednisone (Prednisone) 20 Mg Tab 20 MG PO BID for 5 Days, #10 TAB Prov: LEONIDES HEMPHILL MD 02/23/25 Azithromycin (Azithromycin) 500 Mg Tab 1 TAB PO DAILY for 5 Days, #5 TAB Prov: LEONIDES HEMPHILL MD 02/23/25 Albuterol Sulfate (Albuterol Sulfate) 0.083 % Neb 1 VIAL NEB Q4HPRN PRN, #50 VIAL 5 Refills Prov: LEONIDES HEMPHILL MD 02/23/25 Discharged With: Self Comments Patient improved on re-evaluation. No respiratory distress noted. Critical Care Note Critical Care Time?: No Stability Stability form required: No Heart Score Heart Score: Heart Score Response (Comments) Value History N/A 0 EKG N/A 0 Age N/A 0 Risk Factors N/A 0 Troponin N/A 0 Total 0 I personally scribed for LEONIDES HEMPHILL MD ([email or web address]) on 02/23/25 at 02:57. Electronically submitted by William Guo ([email or web address]). LEONIDES HEMPHILL MD Feb 23, 2025 02:57
[2025-02-23 03:08] LABS: Hematocrit 37.5 % (36.0-46.0); Hemoglobin 12.6 g/dL (12.2-16.2); Mean Corpuscular Hemoglobin 30.4 pg (28.0-32.0); Mean Corpuscular Volume 90.6 fL (80.0-100.0); Nucleated Red Blood Cells % 0.0 %
[2025-02-23] MEDS: ALBUTEROL SULF 2.5 MG/0.5ML(0.5%) NEB SOLN NEB ONE (03:08)
[2025-02-23 03:25] LABS: Alanine Aminotransferase 14 U/L (7-40); Albumin 3.8 g/dL (3.2-4.8); Alkaline Phosphatase 88 U/L (46-116); Anion Gap 8 (5-15); BUN/Creatinine Ratio 13.4 (10.0-20.0); Bilirubin, Total 0.7 mg/dL (0.2-1.0); Blood Urea Nitrogen 13 mg/dL (9-23); Calcium 9.3 mg/dL (8.7-10.4); Carbon Dioxide 27 mmol/L (20-31); Glucose 86 mg/dL (74-106); Potassium 3.7 mmol/L (3.5-5.1); Sodium 143 mmol/L (136-145); Total Protein 6.8 g/dL (5.7-8.2)
[2025-02-23 03:31] LABS: Chloride 108 mmol/L (98-107)
--- NOTE | 2025-02-23 03:55 | DVH ---
CHEST RADIOGRAPH Indication: SOB Technique: Single frontal view of the chest was obtained COMPARISON: XY CHEST PORTABLE on DOS: 01/14/25 FINDINGS: Lines and Tubes: None Lungs: Mild patchy right perihilar infiltrate. Pleura: No effusion. No pneumothorax. Cardiomediastinal contours: Cardiomegaly. Bones: Unremarkable IMPRESSION: 1. Mild patchy right perihilar infiltrate. 2. Cardiomegaly.
[2025-02-23] MEDS ORDERED: ALBU0.084 NEB (04:27)
[2025-02-23] MEDS ORDERED: PRED20TA2 PO (04:27)
[2025-02-23] MEDS ORDERED: AZIT500T66 PO (04:27)
[2025-02-23 05:13] VITALS: BP 140/80; PULSE 64; RESP 18; TEMP 97.9; O2SAT 96
[2025-02-23] MEDS: predniSONE 20 MG TAB PO ONE (05:33)
[2025-02-23] MEDS: AZITHROMYCIN 250 MG TAB PO ONE (05:34)
== END 2025-02-23 05:36 | disposition home or self-care (01) ==
LOC: ER 02:23
DX: J44.1 Chronic obstructive pulmonary disease with (acute) exacerbation (principal); I10 Essential (primary) hypertension; F41.9 Anxiety disorder, unspecified; F32.A Depression, unspecified; Z79.899 Other long term (current) drug therapy
CPT/HCPCS: 36415; 71045; 80053; 83880; 84484; 85025; 94640; 99284; J7512